=== PATIENT | male | born 1985 | race Caucasian/White ===

== ENCOUNTER → 2019-04-21 | Outpatient (CLI) | payer MEDICAID, SELFPAY | END | disposition home or self-care (01) | LOC: LABSPEC 16:07 | PROVIDERS: Referring Provider Otolaryngology; Visit Provider Otolaryngology | DX: B37.9 Candidiasis, unspecified (principal) | CPT/HCPCS: 87070 ==

== ENCOUNTER → 2019-10-27 | Outpatient (CLI) | payer MEDICAID, SELFPAY ==
--- NOTE | 2019-10-27 09:19 | RAD_ITS ---
STUDY: X-RAY - ESOPHAGUS (BARIUM SWALLOW) WITH FLUOROSCOPY REASON FOR EXAM: Male, 34 years old. DYSP[address] PT ST - and quot;FOOD STICKS, FOOD GOES DOWN SLOWER, BACK OF TONGUE WHITE/BUMPS and quot;. POSSIBLE GERD. TECHNIQUE: 17 view(s) of the esophagus were obtained following swallowing of barium. FLUOROSCOPY TIME (if supplied): (0:28) minutes/seconds COMPARISON: None. FINDINGS: There is no demonstrated esophageal foreign body. There is no demonstrated stricture or mucosal abnormality. Normal gastroesophageal junction, without a demonstrated hiatal hernia. The patient ingested a 12 mm tablet of barium without any difficulty. Normal visualized aortic arch and descending thoracic aorta. Normal visualized pulmonary parenchyma. Normal visualized osseous structures of the thorax. RAD/Esophagus Dual Contrast IMPRESSION: Normal plain film x-ray examination (barium swallow) of the esophagus. Electronically Signed: Tito Rose, at 11:00 EDT , Service support ,
== END | disposition home or self-care (01) ==
LOC: RAD 09:18
PROVIDERS: PCP Nurse Practitioner Family; Referring Provider Otolaryngology; Visit Provider Otolaryngology
DX: R13.10 Dysphagia, unspecified (principal)
CPT/HCPCS: 74221